=== PATIENT | female | born 1945 | race Caucasian/White ===

== ENCOUNTER 2019-11-28 09:17 | Day surgery (SDC) | payer MEDICARE, OTHER ==
[~2019-11-28] VITALS: Ht 157.5 cm; Wt 55.5 kg
[~2019-11-28 09:17] MED LIST: BISHYD2.5 PO; CRUTCH4 USE; Cleocin HCl300 MG PO; ESTR1; FENO48 PO; HYDACE5 PO; Lamisil250 MG PO; Norco 5-325 Ta1 EACH PO; RXNEOPOLHC AD; VITAMINS A & D1 EACH PO
[2019-11-28] MEDS ORDERED: AMLO5 (09:57)
[2019-11-28] MEDS ORDERED: ATOR20 (09:57)
== END 2019-11-28 11:41 | disposition home or self-care (01) ==
LOC: ORSCSDS 09:17
PROVIDERS: Internal Medicine Gastroenterology
PROC: 0DBP8ZX Excision of Rectum, Via Natural or Artificial Opening Endoscopic, Diagnostic (ICD-10-PCS; principal; 2019-11-28 10:30)
PROC: 0DBH8ZX Excision of Cecum, Via Natural or Artificial Opening Endoscopic, Diagnostic (ICD-10-PCS; principal; 2019-11-28 10:30)
PROC: 0DBN8ZX Excision of Sigmoid Colon, Via Natural or Artificial Opening Endoscopic, Diagnostic (ICD-10-PCS; principal; 2019-11-28 10:30)
PROC: 0DBM8ZX Excision of Descending Colon, Via Natural or Artificial Opening Endoscopic, Diagnostic (ICD-10-PCS; principal; 2019-11-28 10:30)
DX: Z12.11 Encounter for screening for malignant neoplasm of colon (principal); Z86.010 Personal history of colon polyps; Z80.0 Family history of malignant neoplasm of digestive organs; K62.1 Rectal polyp; D12.4 Benign neoplasm of descending colon; D12.0 Benign neoplasm of cecum; K63.5 Polyp of colon; K57.30 Diverticulosis of large intestine without perforation or abscess without bleeding; I10 Essential (primary) hypertension; E78.5 Hyperlipidemia, unspecified; R01.1 Cardiac murmur, unspecified; F17.210 Nicotine dependence, cigarettes, uncomplicated; Z79.899 Other long term (current) drug therapy
CPT/HCPCS: 88305; J2704; J7120

== ENCOUNTER → 2022-03-06 | Outpatient (CLI) | payer MEDICARE, OTHER ==
[~2022-03-06] MED LIST changes: +AMLO5; +ATOR20
[2022-03-06 17:00] LABS: BASOPHILS ABSOLUTE AUTO 0.06 K/mm3 (0.00-0.23); BASOPHILS PERCENT AUTO 1 % (0-2); EOSINOPHILS ABSOLUTE AUTO 0.17 K/mm3 (0.00-0.68); EOSINOPHILS PERCENT AUTO 2 % (0-6); Hemoglobin 15.2 g/dL (11.5-16.0); IMMATURE GRAN ABSOLUTE AUTO 0.03 K/mm3 (0.00-0.10); IMMATURE GRAN PERCENT AUTO 0 % (0-1); LYMPHOCYTES ABSOLUTE AUTO 2.79 K/mm3 (0.84-5.20); LYMPHOCYTES PERCENT AUTO 28 % (21-46); MONOCYTES ABSOLUTE AUTO 0.66 K/mm3 (0.16-1.47); MONOCYTES PERCENT AUTO 7 % (4-13); Mean Corpuscular HGB 33.4 pg (26.0-34.0); Mean Corpuscular HGB Conc 33.8 g/dL (31.5-36.5); Mean Corpuscular Volume 99 fL (80-100); Mean Platelet Volume 9.2 fL (9.1-12.4); NEUTROPHILS ABSOLUTE AUTO 6.28 K/mm3 (1.96-9.15); NEUTROPHILS PERCENT AUTO 63 % (41-73); Platelet Count 286 K/mm3 (150-400); Red Blood Cell Count 4.55 M/mm3 (3.80-5.20); White Blood Cell Count 9.99 K/mm3 (4.00-11.30)
[2022-03-06 18:14] LABS: Alanine Aminotransfer (ALT/SGP 24 U/L (12-78); Albumin/Globulin Ratio 1.4 (0.8-1.8); Alk Phos 50 U/L (50-136); Anion Gap 3 mmol/L (6-16); Aspartate Aminotrans (AST/SGOT 14 U/L (12-37); Bilirubin, Total 0.2 mg/dL (0.1-1.0); Blood Urea Nitrogen 19 mg/dL (8-24); CHOL/HDL RATIO 3.7; CO2, Blood 29 mmol/L (21-32); Chloride, Blood 109 mmol/L (98-108); Cholesterol 161 mg/dL (50-200); Creatinine, Blood 0.68 mg/dL (0.40-1.00); Globulin, Blood 2.9 g/dL (2.2-4.0); Glomerular Filtration Rate 91 (60-); Glucose, Blood 101 mg/dL (70-99); HDL Cholesterol 43 mg/dL (>39); LDL/HDL RATIO 1.7; Low Density Lipoprotein Chol 71 mg/dL (0-110); Potassium, Blood 4.2 mmol/L (3.5-5.5); Sodium, Blood 141 mmol/L (136-145); Total Protein, Blood 6.9 g/dL (6.4-8.2); Triglycerides 235 mg/dL (30-160); Very Low Density Lipoprot Chol 47 mg/dL (6-32)
== END | disposition home or self-care (01) ==
LOC: LAB SHORT 14:15 → LAB 14:15
PROVIDERS: Nurse Practitioner
DX: E78.5 Hyperlipidemia, unspecified (principal)
CPT/HCPCS: 80053; 80061; 85025

== ENCOUNTER 2022-04-24 10:52 | Inpatient (IN) | payer MEDICARE, OTHER ==
[~2022-04-24] VITALS: Ht 157.5 cm; Wt 53.2 kg
[2022-04-24] MEDS ORDERED: LISI5 PO (11:06)
[2022-04-24 11:13] LABS: BASOPHILS ABSOLUTE AUTO 0.04 K/mm3 (0.00-0.23); BASOPHILS PERCENT AUTO 0 % (0-2); EOSINOPHILS PERCENT AUTO 1 % (0-6); Hematocrit 44.7 % (33.0-51.0); Hemoglobin 15.2 g/dL (11.5-16.0); IMMATURE GRAN ABSOLUTE AUTO 0.03 K/mm3 (0.00-0.10); IMMATURE GRAN PERCENT AUTO 0 % (0-1); LYMPHOCYTES ABSOLUTE AUTO 2.53 K/mm3 (0.84-5.20); LYMPHOCYTES PERCENT AUTO 20 % (21-46); MONOCYTES ABSOLUTE AUTO 0.88 K/mm3 (0.16-1.47); MONOCYTES PERCENT AUTO 7 % (4-13); Mean Corpuscular HGB 33.5 pg (26.0-34.0); Mean Corpuscular Volume 99 fL (80-100); Mean Platelet Volume 8.9 fL (9.1-12.4); NEUTROPHILS ABSOLUTE AUTO 9.31 K/mm3 (1.96-9.15); NEUTROPHILS PERCENT AUTO 72 % (41-73); Platelet Count 317 K/mm3 (150-400); RDW Coefficient Variation 13.2 % (11.7-14.2); RDW Standard Deviation 47.7 fL (35.1-46.3); Red Blood Cell Count 4.54 M/mm3 (3.80-5.20); White Blood Cell Count 12.89 K/mm3 (4.00-11.30)
[2022-04-24 11:29] LABS: Albumin/Globulin Ratio 1.1 (0.8-1.8); Bilirubin, Total 0.3 mg/dL (0.1-1.0); Bun/Creatinine Ratio 30.4 (12.0-20.0); Calcium, Blood 9.7 mg/dL (8.5-10.1); Creatinine, Blood 0.62 mg/dL (0.40-1.00); Globulin, Blood 3.5 g/dL (2.2-4.0); Potassium, Blood 3.9 mmol/L (3.5-5.5); Total Protein, Blood 7.5 g/dL (6.4-8.2)
[2022-04-24 15:12] LABS: Anti-Xa UFH, PHA Monitoring <0.10 IU/mL
[2022-04-24 15:23] LABS: International Normalized Ratio 0.99; Prothrombin Time Results 10.4 Sec (9.7-11.5)
[2022-04-24] MEDS ORDERED: AMLO10 (17:01)
[2022-04-24] MEDS ORDERED: ATOR10 PO (17:01)
--- NOTE | 2022-04-24 19:23 | NUR ---
SHIFT SUMMARY PATIENT NEW ADMIT TO UNIT FROM ER AT 1500 FOR NSTEMI. UNDERWENT ANGIOGRAM WITH DR PICHARDO WITHOUT INTERVENTION. RETURNED TO ROOM AT 1630. ALERT AND ORIENTED. TOLERATING CARDIAC DIET AND LIQUIDS. TR BAND IN PLACE TO RIGHT RADIAL SITE. SITE SOFT, NO SWELLING, NO SIGNS OF HEMATOMA, TR BAND INTACT. IMMOBILIZER IN PLACE TO R WRIST. HEPARIN DRIP STARTED AND VERIFIED WITH MELISSA BUNN RN. SBA UP TO BATHROOM. VOIDING. VSS. PLAN IS FOR PATIENT TO TRANSFER NORTH FOR INTERVENTION FOR SIGNIFICANT CORONARY ARTERY DISEASE.
[2022-04-25 05:37] LABS: BASOPHILS ABSOLUTE AUTO 0.06 K/mm3 (0.00-0.23); BASOPHILS PERCENT AUTO 1 % (0-2); EOSINOPHILS ABSOLUTE AUTO 0.19 K/mm3 (0.00-0.68); EOSINOPHILS PERCENT AUTO 2 % (0-6); Hematocrit 42.1 % (33.0-51.0); Hemoglobin 14.2 g/dL (11.5-16.0); IMMATURE GRAN ABSOLUTE AUTO 0.02 K/mm3 (0.00-0.10); IMMATURE GRAN PERCENT AUTO 0 % (0-1); LYMPHOCYTES ABSOLUTE AUTO 2.85 K/mm3 (0.84-5.20); LYMPHOCYTES PERCENT AUTO 29 % (21-46); MONOCYTES ABSOLUTE AUTO 0.75 K/mm3 (0.16-1.47); MONOCYTES PERCENT AUTO 8 % (4-13); Mean Corpuscular HGB 32.7 pg (26.0-34.0); Mean Corpuscular HGB Conc 33.7 g/dL (31.5-36.5); Mean Corpuscular Volume 97 fL (80-100); Mean Platelet Volume 8.9 fL (9.1-12.4); NEUTROPHILS ABSOLUTE AUTO 6.11 K/mm3 (1.96-9.15); NEUTROPHILS PERCENT AUTO 61 % (41-73); Platelet Count 260 K/mm3 (150-400); RDW Coefficient Variation 12.9 % (11.7-14.2); RDW Standard Deviation 46.7 fL (35.1-46.3); Red Blood Cell Count 4.34 M/mm3 (3.80-5.20); White Blood Cell Count 9.98 K/mm3 (4.00-11.30)
[2022-04-25 05:53] LABS: Bun/Creatinine Ratio 34.4 (12.0-20.0); Calcium, Blood 8.9 mg/dL (8.5-10.1); Creatinine, Blood 0.55 mg/dL (0.40-1.00); Potassium, Blood 3.9 mmol/L (3.5-5.5)
--- NOTE | 2022-04-25 05:59 | NUR ---
SHIFT SUMMARY Assumed care of patient at 1900. A/Ox4, cooperative with care and independent in room. SBP has been 80-90's with MAP > 65. Reports no CP/pressure. Maintains over 95% on RA, LS dim t/o. Patient displays some anxiety regarding what to expect from here on out. SR 80's on tele. Strong 2+ pulses t/o. R radial site recovered, without hematoma, C/D/I. Will report to daysshankar HOWELL.
[2022-04-25 08:36] LABS: CHOL/HDL RATIO 3.4; Cholesterol 145 mg/dL (50-200); HDL Cholesterol 43 mg/dL (>39); LDL/HDL RATIO 1.8; Low Density Lipoprotein Chol 79 mg/dL (0-110); Triglycerides 116 mg/dL (30-160); Very Low Density Lipoprot Chol 23 mg/dL (6-32)
--- NOTE | 2022-04-25 09:22 | NUR ---
AM NOTE: ALERT AND ORIENTED X4. DENIES NUMBNESS/TINGLING. ABLE TO TURN SELF IN BED. SBA TO BATHROOM. ON ROOM AIR SATING ABOVE 94%. DENIES SOB. EVERYDAY SMOKER, NICOTINE PATCH TO RIGHT UPPER DELTOID. ON TELE SHOWING SINUS RHYTHM WITH HR 70-80'S. DENIES CHEST PAIN/PRESSURE. BP ON SOFTER SIDE, AM BP MEDS HELP DUE TO PARAMETERS. NO SIGNS OF EDEMA. S/P ANGIO 04/24 WITH RIGHT RADIAL SITE. SITE WNL. TEGADERM AND ARM BOARD IN PLACE. SOFT AND NONTENDER. POST OP/RADIAL SITE CARE EDUCATION REVIEWED. EATING SMALL AMOUNTS THIS AM. SON IN TO VISIT. HEPARIN GTT INFUSING AT 14 UNITS/KG/HOUR AND 14.8 ML/HR, VERIFIED WITH NIGHT RN. DENIES NEEDS AT THIS TIME. WATCHING TV, CALL LIGHT IN REACH. WILL CONTINUE TO MONITOR.
--- NOTE | 2022-04-25 17:41 | NUR ---
TRANSFER NOTE: NO ACUTE CHANGES. SEE PREVIOUS AM NOTE FOR UPDATES. VITAL SIGNS REMAIN STABLE THROUGHOUT SHIFT. DENIES PAIN. HEPARIN DRIP INFUSING. TRANSFER IN TO PICK PATIENT UP. REPORT GIVEN TO TRANSFER TEAM. REPORT CALLED TO LANIE AGRAWAL RN. PATIENT LEFT UNIT WITH ALL PERSONAL BELONGINGS AND COBRA TRANSFER PACKET.
== END 2022-04-25 17:25 | disposition short-term general hospital (02) | DRG 282 ==
LOC: ER 10:52 → PCU 13:07 → ICUW 13:07 → PCU 15:08
PROVIDERS: Emergency Medicine; Family Medicine; ADMIT Internal Medicine Cardiovascular Disease
PROC: 4A023N7 Measurement of Cardiac Sampling and Pressure, Left Heart, Percutaneous Approach (ICD-10-PCS; principal; 2022-04-24)
PROC: B2111ZZ Fluoroscopy of Multiple Coronary Arteries using Low Osmolar Contrast (ICD-10-PCS; 2022-04-24)
DX: I21.4 Non-ST elevation (NSTEMI) myocardial infarction (principal); J44.9 Chronic obstructive pulmonary disease, unspecified; I25.10 Atherosclerotic heart disease of native coronary artery without angina pectoris; R79.89 Other specified abnormal findings of blood chemistry; I10 Essential (primary) hypertension; D72.828 Other elevated white blood cell count; Z66 Do not resuscitate; Z90.710 Acquired absence of both cervix and uterus; Z90.49 Acquired absence of other specified parts of digestive tract; Z79.899 Other long term (current) drug therapy; Z90.89 Acquired absence of other organs; Z88.0 Allergy status to penicillin; F17.210 Nicotine dependence, cigarettes, uncomplicated; Z71.6 Tobacco abuse counseling
CPT/HCPCS: 36415; 71046; 76937; 80048; 80053; 80061; 83880; 84484; 85025; 85520; 85610; 93005; 93010; 93306; 93454; 99152; 99153; 99285-25; A9270; C1769; C1887; C1894; J1644; J2250; J2405; J3010; J7030; J7040; Q9967

== ENCOUNTER 2022-05-08 10:43 | Emergency (ER) | payer MEDICARE, OTHER ==
[~2022-05-08] VITALS: Ht 157.5 cm; Wt 49.9 kg
[~2022-05-08 10:43] MED LIST changes: +AMLO10; +ATOR10 PO; +LISI5 PO
[2022-05-08 11:32] LABS: BASOPHILS PERCENT AUTO 1 % (0-2); EOSINOPHILS ABSOLUTE AUTO 0.29 K/mm3 (0.00-0.68); EOSINOPHILS PERCENT AUTO 2 % (0-6); Hematocrit 32.3 % (33.0-51.0); Hemoglobin 10.7 g/dL (11.5-16.0); IMMATURE GRAN ABSOLUTE AUTO 0.09 K/mm3 (0.00-0.10); IMMATURE GRAN PERCENT AUTO 1 % (0-1); LYMPHOCYTES ABSOLUTE AUTO 1.31 K/mm3 (0.84-5.20); LYMPHOCYTES PERCENT AUTO 9 % (21-46); MONOCYTES ABSOLUTE AUTO 0.97 K/mm3 (0.16-1.47); MONOCYTES PERCENT AUTO 7 % (4-13); Mean Corpuscular HGB 32.5 pg (26.0-34.0); Mean Corpuscular HGB Conc 33.1 g/dL (31.5-36.5); Mean Corpuscular Volume 98 fL (80-100); Mean Platelet Volume 8.6 fL (9.1-12.4); NEUTROPHILS ABSOLUTE AUTO 11.44 K/mm3 (1.96-9.15); NEUTROPHILS PERCENT AUTO 81 % (41-73); Platelet Count 608 K/mm3 (150-400); RDW Coefficient Variation 13.6 % (11.7-14.2); RDW Standard Deviation 48.5 fL (35.1-46.3); Red Blood Cell Count 3.29 M/mm3 (3.80-5.20)
[2022-05-08 11:50] LABS: Albumin, Blood 3.5 g/dL (3.4-5.0); Albumin/Globulin Ratio 0.8 (0.8-1.8); Bilirubin, Total 0.3 mg/dL (0.1-1.0); Bun/Creatinine Ratio 31.1 (12.0-20.0); Calcium, Blood 10.1 mg/dL (8.5-10.1); Creatinine, Blood 0.71 mg/dL (0.40-1.00); Globulin, Blood 4.4 g/dL (2.2-4.0); Total Protein, Blood 7.9 g/dL (6.4-8.2)
[2022-05-08] MEDS ORDERED: LOW DOSE ASPIRI81 M1 PO (12:50)
[2022-05-08] MEDS ORDERED: FUROSEMIDE20 MG (12:50)
[2022-05-08] MEDS ORDERED: Dilaudid 2 mg Ta2 MG (12:50)
[2022-05-08] MEDS ORDERED: PANTOPRAZOLE SO40 M2 (12:50)
[2022-05-08] MEDS ORDERED: KLOR-CON 1010 ME4 PO (12:51)
[2022-05-08] MEDS ORDERED: ATOR40TA PO (12:51)
[2022-05-08] MEDS ORDERED: LISI5 PO (12:51)
[2022-05-08] MEDS ORDERED: GABA100 PO (12:51)
[2022-05-08] MEDS ORDERED: DOXY100 PO (14:23)
[2022-05-08] MEDS ORDERED: PRED20 PO (14:23)
[2022-05-08] MEDS ORDERED: ALBU90OI INH (14:23)
== END 2022-05-08 14:45 | disposition home or self-care (01) ==
LOC: ER 10:43
PROVIDERS: Physician Assistant
DX: J44.1 Chronic obstructive pulmonary disease with (acute) exacerbation (principal); I10 Essential (primary) hypertension; Z95.1 Presence of aortocoronary bypass graft; Z79.82 Long term (current) use of aspirin; Z79.899 Other long term (current) drug therapy; Z88.0 Allergy status to penicillin; Z87.891 Personal history of nicotine dependence
CPT/HCPCS: 36415; 71046; 80053; 83880; 84484; 85025; 93005; 93010; 94640; 94664; 99284-25